=== PATIENT | female | born 1985 | race Caucasian/White ===

== ENCOUNTER 2021-12-22 14:14 | Outpatient (CLI) | payer OTHER, SELFPAY ==
--- NOTE | 2021-12-22 14:30 | MR_ITS ---
[address] [address] Phone:?[phone] Fax:?[phone] Referring Physician Information: Tierra Castaneda [address] [facility] [address] Phone:?[phone] Fax:?[phone] Patient:Kevin Rosales D.O.B:?1985 Sex:?Male Phone:? [facility] MRN:?[id number] Exam Date:?12/22/2021 ? EXAM: MRI of the LEFT KNEE, without contrast CLINICAL INFORMATION: Male, 36 years old, with knee pain after dog leash injury INDICATION: Evaluate for internal derangement, history of valgus moment injury PRIOR SURGERY: None reported. PLAIN FILMS: None available. COMPARISONS: No prior MRIs available. TECHNICAL INFORMATION: Using a 1.5T MR scanner and a localizing surface coil: sagittals: PD, PDFS coronals: PD, T2FS axials: PD, PDFS SEDATION: None CONTRAST: None FINDINGS: Knee joint: Effusion: Small sized left knee effusion. Popliteal cyst: None. Loose bodies: None. Subcutaneous and extra-articular soft tissues: Unremarkable. Ligaments: ACL: Intact ACL anteromedial and posterolateral bundles, without sprain or tear. PCL: Intact PCL, without acute or chronic injury. MCL: Intact MCL superficial and deep layers, without injury. LCL: Intact LCL, without injury. Posterolateral corner: No posterolateral corner soft tissue injury. Popliteus, biceps femoris, iliotibial band, popliteofibular ligament and lateral gastrocnemius are intact. Posteromedial corner: No posteromedial corner soft tissue injury. Semimembranosus, pes anserine tendons and posterior oblique ligament are without injury, tendinopathy or bursitis. Extensor mechanism: Patellar tendon: Intact, without tendinopathy. Quadriceps tendon: Intact, without tendinopathy. Retinacula: Medial and lateral retinacula are intact. Fat pads: Unremarkable infrapatellar Hoffa's, quadriceps and prefemoral fat pads. Medial compartment: Medial meniscus: No articular surface, meniscosynovial junction or root tear. No displacement, extrusion or parameniscal cyst. Medial femoral condyle: No chondromalacia or osteochondral abnormality. Medial tibial plateau: No chondromalacia or osteochondral abnormality. Lateral compartment: Lateral meniscus: No articular surface, meniscosynovial junction or root tear. No displacement, extrusion or parameniscal cyst. Lateral femoral condyle: No chondromalacia or osteochondral abnormality. Lateral tibial plateau: No chondromalacia or osteochondral abnormality. Patellofemoral joint: Patella: The patella is laterally tilted and mildly subluxed in relation to the trochlea. No chondromalacia or osteochondral abnormality. Trochlea: No chondromalacia or osteochondral abnormality. Proximal tibiofibular joint: Unremarkable, without evidence of ligament sprain injury, joint effusion or adjacent marrow edema. Bones: Prominent appearance of marrow edema in the peripheral lateral femoral condyle anteriorly with subchondral microtrabecular fracturing. Associated moderate periosteal reaction/edema. Minimal marrow edema in the anterior lateral tibial plateau. IMPRESSION: 1. Prominent marrow edema/contusion in the lateral tibial plateau anteriorly with subchondral microtrabecular fracturing. Associated moderate periosteal reaction and edema. 2. Minimal marrow edema in the anterior lateral tibial plateau is nonspecific, possibly also reflecting region of osseous contusion. 3. No medial or lateral meniscus tear. 4. No cruciate or collateral ligament sprain/tear. 5. No osteochondral abnormality. 6. Small knee joint effusion. KME Electronically signed on 12/23/2021 11:23:00 AM by Ramya Maddox M.D.
== END 2021-12-22 14:15 | disposition home or self-care (01) ==
LOC: MRI 14:15
PROVIDERS: PCP Family Medicine; Visit Provider Physician Assistant Surgical
DX: M25.562 Pain in left knee (principal); M23.92 Unspecified internal derangement of left knee; S80.02XA Contusion of left knee, initial encounter; M25.462 Effusion, left knee
CPT/HCPCS: 73721

== ENCOUNTER 2022-06-09 10:45 | Outpatient (CLI) | payer OTHER, SELFPAY ==
[2022-06-09 12:27] LABS: Cholesterol* 169 mg/dL (90-199)
[2022-06-09 12:28] LABS: Glucose* 97 mg/dL (60-115); HDL Cholesterol* 55 mg/dL (>=50); LDL Cholesterol Calculated 100 mg/dL (<100); Triglycerides* 70 mg/dL (40-149)
== END 2022-06-09 10:46 | disposition home or self-care (01) ==
PROVIDERS: PCP Family Medicine; Visit Provider Registered Nurse
DX: Z13.6 Encounter for screening for cardiovascular disorders (principal); Z13.1 Encounter for screening for diabetes mellitus
CPT/HCPCS: 80061; 82947

== ENCOUNTER 2022-06-16 08:29 | Outpatient (CLI) | payer OTHER, SELFPAY ==
--- NOTE | 2022-06-16 08:45 | CRLHL7_ITS ---
For Patients: As a result of the Cures Act, medical imaging exams and procedure reports are released immediately into your electronic medical record. You may view this report before your referring provider. If you have questions, please contact your health care provider. DIGITAL DIAGNOSTIC BILATERAL MAMMOGRAM USING TOMOSYNTHESIS AND COMPUTER-AIDED DETECTION LEFT BREAST ULTRASOUND CLINICAL HISTORY: LEFT breast lump. COMPARISON: None. TECHNIQUE: Digital BILATERAL mammogram in four projections. Tomosynthesis and CAD utilized. Real-time ultrasound imaging of LEFT breast with imaging documentation. BREAST COMPOSITION: There are areas of scattered fibroglandular density. FINDINGS: 3D CC/MLO mammogram images submitted bilaterally. No architectural distortion or suspicious masses. No suspicious calcifications. Targeted LEFT breast ultrasound performed in the area of concern at 3 o`clock 3 cm from the nipple. In this location there is a benign intramammary lymph node measuring 1.3 x 1.1 x 0.3 cm. The cortex is not thickened. Normal internal vascularity. IMPRESSION: Benign intramammary lymph node LEFT breast 3 o`clock 3 cm from nipple. No evidence of malignancy. RECOMMENDATIONS: Age-appropriate screening mammography. Results and recommendations discussed with the patient. BI-RADS Category 2: Benign A lay language report of this examination will be provided to the patient. Dictated by Dandre Wright MD @ 06/16/2022 12:15:39 PM /Dictated by: Dandre Wright MD @ 06/16/2022 12:15:00 PM (Electronically Signed)
--- NOTE | 2022-06-16 09:15 | CRLHL7_ITS ---
For Patients: As a result of the Cures Act, medical imaging exams and procedure reports are released immediately into your electronic medical record. You may view this report before your referring provider. If you have questions, please contact your health care provider. PLEASE SEE DIGITAL DIAGNOSTIC BILATERAL MAMMOGRAM PERFORMED SAME DAY CRL:tori valle/Dictated by: Dandre Wright MD @ 06/16/2022 12:16:00 PM (Electronically Signed)
== END 2022-06-16 08:30 | disposition home or self-care (01) ==
LOC: MAMMO 08:29
PROVIDERS: PCP Family Medicine; Visit Provider Registered Nurse
DX: N63.20 Unspecified lump in the left breast, unspecified quadrant (principal)
CPT/HCPCS: 76642; 77066; G0279